=== PATIENT | male | born 1960 | race Caucasian/White ===

== ENCOUNTER 2024-05-19 18:30 | Inpatient (IN) | payer MEDICARE, SELFPAY ==
[2024-05-19 12:37] VITALS: BP 163/104
[2024-05-19 14:00] VITALS: BP 169/84
--- NOTE | 2024-05-19 14:23 | ED.GENMED ---
History of Present Illness
General
Chief Complaint: Bowel Problem
Source: patient
Exam Limitations: none
Time Seen by Provider: 05/19/24 14:14
Nursing documentation reviewed up to this point in time: agreed with
History of Present Illness
History of Present Illness:
64-year-old male presents emergency room complaining of diffuse abdominal pain, and being unable to move his bowels for the past 4 to 5 days.
Past History
Past History
ED Past Medical History: Asthma, GERD, HTN and Other (Chronic back pain)
Social History
Tobacco: Non-smoker
Alcohol: None
Personal:
Living: alone
Employment: Disabled
Family History
Family History: Other (Noncontributory)
Review of Systems
Review of Systems
Allergies reviewed?: Yes
All Other Systems: Not applicable
Constitutional: Reports no symptoms
EENT: Reports no symptoms
Respiratory: Reports no symptoms
Cardiac: Reports no symptoms
ABD/GI: Reports abdominal pain, nausea and constipated
: Reports no symptoms
Musculoskeletal: Reports no symptoms
Skin: Reports no symptoms
Neurological: Reports no symptoms
Endocrine: Reports no symptoms
Hematologic/Lymphatic: Reports no symptoms
Psychiatric: Reports no symptoms
Phy Exam
Physical Exam
Physical Exam:
Physical Exam
General: afebrile
Neck: supple. no meningeal signs. normal posterior pharynx
Heart: s1/s2 regular rate and rhythm, no murmur. equal radial
pulses.
HEENT: Pupils equal round reactive to light, EOMI
Lungs: no acute respiratory distress. clear bilaterally
Abdomen: normal bowel sounds. diffuse tenderness
Neuro: alert and oriented. no focal neurological deficits
Skin: no rash
Psychiatric: well kept. interactive and cooperative
Extremities: no edema. no calf tenderness. negative homans. good distal pulses
Course
Orders/Labs/Results
Orders:
Orders
05/19/24 Lunch
NPO
Allow oral meds: No
Allow clear liquids: No
05/19/24 14:21
IV Insert/Care/Rem.- Treatment PRN
0.9% Sodium Chloride 1000 ml [Nss] 1,000 ml IV BOLUS
05/19/24 14:22
CT Abd/Pel (IV only)-DH only Urgent
Comment:
Reason For Exam: diffuse abd pain, constipation 4 days
05/19/24 14:40
Complete Blood Count/With Diff Urgent
Comprehensive Metabolic Panel Urgent
Lipase Urgent
05/19/24 17:04
Morphine Sulfate 4 mg IV NOW STA
Ondansetron Injectable [Zofran] 4 mg IV NOW STA
05/19/24 17:13
CT Abd/pel Rectal Only-ED Only Urgent
Comment:
Reason For Exam: concern for obstruction, stricture
05/19/24 18:03
Admit/Transfer Patient As Directed
Co-Sign Provider:
Level of Care: Inpatient admission
Assign to:: Medical/Surgical
Physician / Group: Tonie Cooper
Diagnosis: large bowel obstruction
Reason for Hospitalization: large bowel obstruction
Expected length of stay greater than two midnights?: Yes
ELOS- Estimated Length of Stay in days: 3
I certify the patient meets the requirements for IP care: Yes
05/19/24 18:04
Code Status As Directed
Resuscitation Status: Full Code
05/19/24 18:17
HYDROmorphone [Dilaudid] 0.5 mg IV NOW STA
05/19/24 18:20
Piperacillin/Tazo 3.375 Gram [Zosyn] 3.375 gram in 50 ml IV Q6H
05/19/24 18:21
Transfer Patient As Directed
Transfer to: Telemetry
Reason for Telemetry: Chest Pain syndromes
Date to Stop Telemetry: 05/21/24
Time to Stop Telemetry: 11:00
05/19/24 19:00
Lactated Ringers [Lr] 1,000 ml IV 100 mls/hr
05/19/24 19:26
Acetaminophen [Tylenol] 650 mg PO Q4HPRN PRN
HYDROmorphone [Dilaudid] 1 mg IV Q3HPRN PRN
Ondansetron Injectable [Zofran] 4 mg IV Q6HPRN PRN
05/19/24 19:26
Activity As Directed
Activity Level: As Tolerated
Pneumatic Compression Sleeves As Directed
Type: Knee high
Vital Signs As Directed
Frequency: Per unit guidelines
Weight As Directed
Frequency: Daily
DX Deep Vein Thrombosis Video Routine
05/19/24 20:00
Bupropion(12Hr)Sustain Release [WELLBUTRIN SR (12 hour sustained release)] 150 mg PO BID
05/19/24 22:00
Cyclobenzaprine HCl [Flexeril] 10 mg PO TID
05/20/24 06:00
Basic Metabolic Panel IN AM
Complete Blood Count/With Diff IN AM
Magnesium IN AM
05/20/24 08:00
Pantoprazole [Protonix IV] 40 mg IV DAILY
05/21/24 11:00
DC Protocol for Telemetry ONCE
Abnormal Lab Results
05/19/24
14:40
WBC 18.1 H 10^3/uL
(4.8-10.8)
MPV 11.1 H fL
(7.4-10.4)
Abs Immat Gran (auto) 0.1 H 10^3/uL
(0-0.05)
Absolute Neuts (auto) 14.7 H 10^3/uL
(1.4-6.5)
Absolute Monos (auto) 2.0 H 10^3/uL
(0.1-0.6)
Neutrophils % 81.5 H %
(42.2-75.2)
Lymphocytes % 6.7 L %
(20.5-51.1)
Monocytes % 11.0 H %
(1.7-9.3)
BUN 25 H mg/dl
(9-20)
Creatinine 1.5 H mg/dL
(0.7-1.3)
Glucose 114 H mg/dl
(70-99)
05/19/24 14:40
05/19/24 14:40
Vital Signs
Initial and Last Documented VS:
Initial Vital Signs
Temp Pulse Resp BP Pulse Ox
98.0 F 86 16 163/104 98
05/19/24 12:37 05/19/24 12:37 05/19/24 12:37 05/19/24 12:37 05/19/24 12:37
Last Documented Vital Signs
Temp Pulse Resp BP Pulse Ox
98.0 F 87 20 148/107 95
05/19/24 12:37 05/19/24 18:45 05/19/24 16:00 05/19/24 18:26 05/19/24 18:30
MDM/Problems Addressed
Differential Diagnosis Includes:
Bowel obstruction, diverticulitis
MDM/Problems Addressed:
64-year-old male with large bowel obstruction. Patient seen by Dr. Buckner in ED. Plan for colonic stent.
Chronic conditions affecting care: Asthma
Acute Exacerbation and/or Progression of Chronic Illness: Asthma
*Radiology
Radiology exam reviewed: radiology read reviewed (CT abdomen pelvis shows findings concerning for colonic mass and distal sigmoid colon with obstruction)
*Pulse Oximetry
Patient hypoxic: no
*EKG
Interpreted by ED Provider?: NA
*Gang Ripsaw Operator Interpretation
Rate: Gang Ripsaw Operator- N/A
*Critical Care Note
Total Time (30-74mins, 75-104mins- exclusive of procedures): Not Applicable
Patient Management
Social determinants of health affecting care: Living situation
Discussion with other providers: Hospitalist and Steel Pourer Helper (Colorectal surgery Dr. Buckner)
Escalation/DeEscalation of care consider admission/obs:
Admit indicated
ED Attending Note
-
Portions of this chart may have been created with voice recognition software.� Occasional wrong word or��sound alike� substitutions may have occurred due to the inherent limitations of voice recognition software.
Discharge Plan
Departure
Patient Disposition: Admit
Date of Disposition: 05/19/24
Time of Disposition: 17:14
Admit to: Med/Surg
Presentation/result/management discussed w/ accepting MD/DO: Hospitalist
Patient with high blood pressure during this ER visit?: Yes
Condition: Fair
Discharge Problem:
Large bowel obstruction, Renal insufficiency
Interventions
Interventions:
*Risk Screen - Suicide Last Done: 05/19/24 14:00
*General Assessment Last Done: 05/19/24 14:00
*Neglect/Abuse Screening Last Done: 05/19/24 14:00
ED- Fall Risk Assessment Last Done: 05/19/24 19:21
*Nursing Disposition Last Done: 05/19/24 19:21
CW-Mybwcd-Oaeksaclgp Assessment Last Done: 05/19/24 14:00
Discharge Date and Time
Discharge Date/Time: 05/19/24 19:22
[2024-05-19] MEDS: NSS 1000 IV (14:49)
[2024-05-19 15:12] LABS: ALT (SGPT) 21 U/L (0-50); AST (SGOT) 34 U/L (17-59); Albumin 4.6 g/dl (3.5-5.0); Blood Urea Nitrogen 25 mg/dl (9-20); Calcium 9.6 mg/dl (8.4-10.2); Carbon Dioxide 27 mmol/L (22-30); Chloride 100 mmol/L (98-107); Glucose 114 mg/dl (70-99); Lipase 35 U/L (23-300); Potassium 3.6 mmol/L (3.5-5.1); Sodium 137 mmol/L (135-145); Total Bilirubin 1.1 mg/dl (0.2-1.3); eGFR 51.99
[2024-05-19 15:14] LABS: % Basophils 0.2 % (0-2); % Eosinophils 0.3 % (0-6); % Immature Granulocytes 0.3 % (0-0.5); % Lymphocytes 6.7 % (20.5-51.1); % Neutrophils 81.5 % (42.2-75.2); Absolute Eosinophils 0.1 10^3/uL (0-0.7); Absolute Immature Granulocytes 0.1 10^3/uL (0-0.05); Absolute Lymphocytes 1.2 10^3/uL (1.2-3.4); Absolute Neutrophils 14.7 10^3/uL (1.4-6.5); Hematocrit 44.9 % (39.0-52.0); Hemoglobin 15.8 g/dL (13.0-18.0); Mean Corp Hgb Conc. 35.2 g/dL (33.0-37.0); Mean Corpuscular Hgb 28.8 pg (27.0-31.0); Mean Corpuscular Volume 81.9 fL (80.0-94.0); Mean Platelet Volume 11.1 fL (7.4-10.4); Nucleated Red Blood Cells % 0 % (-); Platelet Count 224 10^3/uL (130-400); Red Blood Cell Count 5.48 10^6/uL (4.70-6.10); Red Cell Dist. Width 12.4 % (11.5-14.5); White Blood Cell Count 18.1 10^3/uL (4.8-10.8)
[2024-05-19 15:42] LABS: Alkaline Phosphatase 89 U/L (38-126)
[2024-05-19 16:00] VITALS: BP 145/89
[2024-05-19] MEDS: MORPHINE SULFATE 4 MG IV (17:14)
[2024-05-19] MEDS: ZOFRAN 4 MG IV (17:14)
--- NOTE | 2024-05-19 17:29 | HPS.HSE ---
Family Physician
-
Family Physician: Mame Brennan
Chief Complaint
-
abdominal pain
History of Present Illness
Mr. Minh De La Fuente is a 64 yo man with hx asthma, GERD, chronic back pain presents to the ER with abdominal pain.
Patient states he developed constipation 4 days ago. He has not been passing gas. 2-3 days ago developed worsening abdominal pain. It became more severe bringing him to the ER. No fevers/chills. + nausea. No vomiting.
No chest pain or shortness of breath. No LE swelling.
Patient has chronic low back pain, opiate dependence. He lives alone. He can walk small distances with a cane or walker otherwise needs a wheelchair.
Medical History
Past Medical History
Past Medical History: Reports Asthma, GERD, HTN, Hypercholesterolemia, Psychiatric (depression) and Other
Additional Past Medical History:
chronic lower back pain
Past Surgical History: Reports Orthopedic
Social History
Tobacco: Non-smoker
Alcohol: None
Family History
Family History: Not pertinent
Allergies / Home Medications
Allergies reflects when Allergies were last updated in [facility].
Home Medications with original date entered in [facility]
Allergy/Medication List:
Allergies
Allergy/AdvReac Type Severity Reaction Status Date / Time
No Known Allergies Allergy Verified 05/19/24 12:39
Home Medications
losartan 100 mg-hydrochlorothiazide 12.5 mg tablet 12.5 tab PO DAILY 07/09/19
oxycodone-acetaminophen 10 mg-325 mg tablet (Percocet) 10 tab PO Q4 PRN pain 07/09/19
bupropion HCl 150 mg tablet,12 hr sustained-release 150 mg PO BID 02/21/23
cyclobenzaprine 10 mg tablet 10 mg PO BID 02/21/23
fenofibrate 160 mg tablet 160 mg PO DAILY 02/21/23
fluticasone propionate 50 mcg/actuation nasal spray,suspension 1 spray intranasal DAILY 02/21/23
ketoconazole 2 % topical cream 1 applic topical DAILY 02/21/23
losartan 100 mg tablet 100 mg PO DAILY 02/21/23
omeprazole 20 mg capsule,delayed release 20 mg PO DAILY 02/21/23
rosuvastatin 10 mg tablet 10 mg PO DAILY 02/21/23
testosterone cypionate 200 mg/mL intramuscular kit 200 mg IM Q3W 02/21/23
Review of Systems
-
History Source: Patient
A 12 point ROS was completed and negative except as noted: Yes
Physical Exam
Vital Signs
Vital Signs
Temp Pulse Resp BP Pulse Ox
98.0 F 86 16 163/104 98
05/19/24 12:37 05/19/24 12:37 05/19/24 12:37 05/19/24 12:37 05/19/24 12:37
Physical Exam
General: Obese
HEENT: PERRLA
Respiratory: Clear; No Wheezes
Cardiac: S1/S2 and Regular Rhythm
GI: Other (obese, tenderness lower quadrants )
Musculoskeletal: No Edema
Skin: Warm and Dry; No Rash
Neuro: AO x 3
Psych: Anxious
Laboratory Results
-
05/19/24 14:40
05/19/24 14:40
Laboratory Results
Total Bilirubin 1.1 mg/dl (0.2-1.3) 05/19/24 14:40
AST 34 U/L (17-59) 05/19/24 14:40
ALT 21 U/L (0-50) 05/19/24 14:40
Alkaline Phosphatase 89 U/L (38-126) 05/19/24 14:40
Lipase 35 U/L (23-300) 05/19/24 14:40
Data Reviewed
-
Diagnostic Radiology: Report Reviewed by me
Lab Data: Labs Reviewed by me
Impression/Plan
-
Mr. Minh De La Fuente is a 64 yo man with hx asthma, GERD, chronic back pain presents to the ER with abdominal pain.
Triage VS: T 98, P 86, RR 16, BP 163/104, SpO2 98%
LABS: WBC 18.1, Hg 15.8, PLT 224, Na 137, K+ 3.6, BUN 25, Cr 1.5, Glucose 114, liver enzymes WNL
CT A/P 05/19/24
IMPRESSION: Moderate circumferential wall thickening of the rectum. This may be due to a mural mass or less focal colitis.
Luminal narrowing of the rectosigmoid junction. This may be due to peristalsis. A stricture cannot be excluded. This would better be evaluated by a repeat exam with oral or rectal contrast, barium enema or colonoscopy.
Simple bilateral renal cysts.
Bilateral too small to characterize hypodense renal lesions likely benign cysts.
Small hiatal hernia.
Moderate fecal material mostly in the left colon.
Mild diverticulosis.
MAR: IV Morphine, IVF, IV Zofran
Large Bowel Obstruction - concern for mural mass of rectum/ stricture rectosigmoid junction
-admit to tele
-Dr. Buckner saw patient in ER, possible OR this evening
-keep NPO including medications
-with Leukocytosis will start IV antibiotics, discussed with Dr. Buckner
-IVF
-pain control
-IV Zofran PRN
Asthma
GERD
-IV Protonix
Essential HTN
-hold CANE BURNER HCTZ and Losartan for now
Hyperlipidemia
-hold CANE BURNER Fenofibrate and Rosuvastatin while NPO
Chronic Back Pain
-he is on Cyclobenzaprine, Oxycodone PO q 4H PRN at home
-hold while NPO and giving PRN IV Dilaudid
Depression
-resume Wellbutrin when able to take PO
DVT PPx SCD
FULL CODE
76 minutes spent on patient evaluation, medical decision making, coordination of care
[2024-05-19 18:26] VITALS: BP 148/107
[2024-05-19] MEDS: LR 1000 IV (18:35)
[2024-05-19] MEDS: DILAUDID 0.5 MG IV ×2 (18:35→22:09)
--- NOTE | 2024-05-19 18:39 | CON.CRS ---
Consultation
-
Reason for Consultation: concern for colon mass/obstruction
Medical History
-
Chief Complaint: constipation
History of Present Illness:
Patient is a 64-year-old male with chronic pain issues requiring OxyContin who came into the ER with 4 days of no flatus or BMs and 3 days of abdominal pain. Also admits to nausea for the last day or 2. He is afebrile with reasonable vitals. He
has leukocytosis with a white count o 18.1. Electrolytes are okay with exception of BUN and creatinine elevation of 25 and 1.5 respectively. LFTs are normal. He underwent 2 CT scans of the abdomen and pelvis the first without rectal contrast the
second with rectal contrast. CTs consistent with at least partial if not complete LBO due to mass of distal sigmoid colon. Of note this patient has not had a colonoscopy for 20 years. 20 years ago, he relates that he had a colonoscopy by
[facility] confirming polyps. The patient is understandably anxious about his circumstance. I was consulted for a colorectal surgical opinion.
Past Medical History
Past Medical History: HTN, Hypercholesterolemia and Other (GERD; colon polyps; chronic pain syndrome; lower back issues; depression)
Past Surgical History: Other (no abdominal surgery)
Social History
Tobacco: Non-Smoker
Alcohol: Occasional
Family History
Family History: Other (negative for CR cancer)
Allergies / Home Medications
Allergy/AdvReac Type Severity Reaction Status Date / Time
No Known Allergies Allergy Verified 05/19/24 12:39
�Medication �Instructions �Recorded �Confirmed �Type
bupropion HCl 150 mg tablet,12 hr 150 mg PO BID 02/21/23 05/19/24 History
sustained-release
cyclobenzaprine 10 mg tablet 10 mg PO TID 02/21/23 05/19/24 History
fenofibrate 160 mg tablet 160 mg PO DAILY 02/21/23 05/19/24 History
fluticasone propionate 50 1 spray intranasal DAILY 02/21/23 05/19/24 History
mcg/actuation nasal
spray,suspension
ketoconazole 2 % topical cream 1 applic topical DAILY to face & 02/21/23 05/19/24 History
belly button
losartan 100 mg tablet 100 mg PO DAILY 02/21/23 05/19/24 History
omeprazole 20 mg capsule,delayed 20 mg PO DAILY 02/21/23 05/19/24 History
release
rosuvastatin 10 mg tablet 10 mg PO DAILY 02/21/23 05/19/24 History
testosterone cypionate 200 mg/mL 200 mg IM Q3W 02/21/23 05/19/24 History
intramuscular kit
cholecalciferol (vitamin D3) 25 25 mcg PO DAILY 05/19/24 05/19/24 History
mcg (1,000 unit) tablet
hydrochlorothiazide 12.5 mg capsule 12.5 mg PO DAILY 05/19/24 05/19/24 History
multivit,Ca,min-iron 8 mg-folic 1 tab PO DAILY 05/19/24 05/19/24 History
acid 200 mcg-lycopene 600 mcg
tablet (Centrum Men)
oxycodone 10 mg tablet 10 mg PO Q4HPRN PRN moderate pain 05/19/24 05/19/24 History
Review of Systems
-
A 10 point review of systems was completed, and was negative except as per HPI.
Physical Exam
Vital Signs
Temp 98.0 F 05/19/24 12:37
Pulse 84 05/19/24 16:00
Resp Rate 20 05/19/24 16:00
Blood pressure 145/89 05/19/24 16:00
SaO2 97 05/19/24 16:00
05/18/24 05/19/24 05/20/24
06:59 06:59 06:59
Actual Weight 135.6 kg
Lab Results / Allergies
05/19/24 14:40
05/19/24 14:40
WBC 18.1 10^3/uL (4.8-10.8) H 05/19/24 14:40
Hgb 15.8 g/dL (13.0-18.0) 05/19/24 14:40
Hct 44.9 % (39.0-52.0) 05/19/24 14:40
Plt Count 224 10^3/uL (130-400) 05/19/24 14:40
Abs Immat Gran (auto) 0.1 10^3/uL (0-0.05) H 05/19/24 14:40
Neutrophils % 81.5 % (42.2-75.2) H 05/19/24 14:40
Allergy/AdvReac Type Severity Reaction Status Date / Time
No Known Allergies Allergy Verified 05/19/24 12:39
Physical Exam
General: Well Developed
HEENT: Normocephalic
Respiratory: Clear
Cardiac: Regular Rhythm
GI: Tender (generalized but no peritineal signs), Distended (mildly), Obese and Other (erythema at umbilicus)
Skin: Warm and Dry
Neuro: Awake, Alert, Oriented and No Motor Deficits
Psych: Other (anxious)
Data Reviewed
-
CT Scan: Image Personally Visualized and interpreted, Report Reviewed by me, Discussed with Physician and Discussed with Patient
Labs: Labs Reviewed by me
Assessment / Plan
-
64-year-old male with at least partial if not complete large bowel obstruction due to distal sigmoid narrowing, with concern for neoplasm. No evidence for perforation. He is not an extremis. The etiology of the leukocytosis is unclear. I
communicated with the patient regarding options including a trip to the OR for flexible sigmoidoscopy under anesthesia followed by possible Hernandez's resection versus GI evaluation regarding option of colonic stent placement. I discussed the
situation also with my partner Dr. Lott. All involved agree that GI evaluation with for potential stenting would be golden as it may avoid potential for colostomy and potentially avoid a staged surgical approach, if surgery is necessary. The
patient was informed of this and is in agreement with the plan. Doing close discussion with the patient and planning took a total of about an hour and 15 minutes.
Thanks.
[2024-05-19 20:05] VITALS: BMI 43.6
[2024-05-19 23:00] VITALS: BP 137/90
[2024-05-19] MEDS: FLEXERIL 10 MG PO (23:20)
[2024-05-19] MEDS: WELLBUTRIN SR (12 hour sustained release) PO (23:54)
[2024-05-20] VITALS (8 sets, daily range): BP systolic 103–159; BP diastolic 65–86; BMI 44.2
[2024-05-20] MEDS: ZOSYN 50 IV ×5 (00:02→23:22)
[2024-05-20] MEDS: DILAUDID 1 MG IV ×2 (00:06→05:19)
[2024-05-20 07:03] LABS: % Basophils 0.1 % (0-2); % Eosinophils 0.3 % (0-6); % Immature Granulocytes 0.5 % (0-0.5); % Lymphocytes 8.1 % (20.5-51.1); % Monocytes 10.7 % (1.7-9.3); % Neutrophils 80.3 % (42.2-75.2); Absolute Immature Granulocytes 0.1 10^3/uL (0-0.05); Absolute Lymphocytes 1.1 10^3/uL (1.2-3.4); Absolute Monocytes 1.5 10^3/uL (0.1-0.6); Hematocrit 36.8 % (39.0-52.0); Hemoglobin 13.1 g/dL (13.0-18.0); Mean Corp Hgb Conc. 35.6 g/dL (33.0-37.0); Mean Corpuscular Hgb 30.2 pg (27.0-31.0); Mean Corpuscular Volume 84.8 fL (80.0-94.0); Mean Platelet Volume 11.4 fL (7.4-10.4); Nucleated Red Blood Cells % 0 % (-); Platelet Count 159 10^3/uL (130-400); Red Blood Cell Count 4.34 10^6/uL (4.70-6.10); Red Cell Dist. Width 12.3 % (11.5-14.5); White Blood Cell Count 13.7 10^3/uL (4.8-10.8)
[2024-05-20] MEDS: PROTONIX IV 40 MG IV (08:09)
[2024-05-20] MEDS: NSS (PRESERVATIVE FREE) 10 ML IV (08:09)
[2024-05-20] MEDS: FLEXERIL 10 MG PO ×3 (08:09→21:37)
[2024-05-20] MEDS: WELLBUTRIN SR (12 hour sustained release) 150 MG PO ×2 (08:10→21:37)
[2024-05-20] MEDS: MORPHINE SULFATE 4 MG IV ×4 (08:10→22:19)
[2024-05-20 08:12] LABS: Blood Urea Nitrogen 20 mg/dl (9-20); Calcium 8.2 mg/dl (8.4-10.2); Carbon Dioxide 26 mmol/L (22-30); Chloride 100 mmol/L (98-107); Estimated Creatinine Clearance 92 ml/min; Glucose 98 mg/dl (70-99); Potassium 3.4 mmol/L (3.5-5.1); Sodium 133 mmol/L (135-145); eGFR > 60.00
[2024-05-20] MEDS: LR 1000 IV (10:32)
--- NOTE | 2024-05-20 11:30 | PTCARENOTE ---
Assumed care of patient at AM change of shift, AAOx3, reporting 10/10 pain in abdomen. LR running at 100ml/hr. Pt reports morphine seemed to have worked better for him than dilaudid, order for PRN morphine obtained - see MAR. Plan of care ongoing.
--- NOTE | 2024-05-20 12:08 | W.PN.HOSP.TC ---
Addendum entered and electronically signed by Tonie Cooper MD 05/20/24 13:18:
*Sterocoral Colitis
Leukocytosis
-continue IV Zosyn for now
Original Note:
Today's Communication/Plan
-
see plan
Assessment / Plan
Assessment / Plan
Mr. Minh De La Fuente is a 64 yo man with hx asthma, GERD, chronic back pain presents to the ER with abdominal pain.
CT A/P 05/19/24
IMPRESSION: Moderate circumferential wall thickening of the rectum. This may be due to a mural mass or less focal colitis.
Luminal narrowing of the rectosigmoid junction. This may be due to peristalsis. A stricture cannot be excluded. This would better be evaluated by a repeat exam with oral or rectal contrast, barium enema or colonoscopy.
Simple bilateral renal cysts.
Bilateral too small to characterize hypodense renal lesions likely benign cysts.
Small hiatal hernia.
Moderate fecal material mostly in the left colon.
Mild diverticulosis.
Colonoscopy 05/19/24
Impression: - Preparation of the colon was unsatisfactory.
- Hemorrhoids found on perianal exam.
- Stool in the entire examined colon.
- A large fecolith impacted in the sigmoid colon,
disrupted and disimpacted.
- No specimens collected.
Recommendation: - Return patient to [facility] for ongoing care.
- Clear liquid diet today.
- Aggressive osmotic laxative regimen; Miralax 1
capful (17 grams) in 8 ounces of water PO QID.
- Repeat colonoscopy for re-evaluation, timing to be
determined.
Large Bowel Obstruction - concern for mural mass of rectum/ stricture rectosigmoid junction
-concern for mass; s/p colonoscopy with finding of large fecolith now disimpacted
-aggressive bowel regimen per GI
-now on clears - continue given continued pain
-start simethicone
-F/U further GI recs
GERD
-IV Protonix
Essential HTN
-resume Losartan
-hold HCTZ
Hyperlipidemia
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
Chronic Back Pain
-he is on Cyclobenzaprine, Oxycodone PO q 4H PRN at home
Depression
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
DVT PPx SCD
FULL CODE
51 minutes spent on patient evaluation, medical decision making, coordination of care
Anticipated Discharge: 24 - 48 hours
Subjective/Interval History
-
Date of Service: May 20, 2024
continues to complain of abdominal pain
no bowel movement today, has not yet received Miralax
Objective Data
-
Labs:
Laboratory Results
05/20/24
06:36
WBC 13.7 H
Hgb 13.1
Hct 36.8 L
Plt Count 159 D
Sodium 133 L
Potassium 3.4 L
Chloride 100
Carbon Dioxide 26
BUN 20
Creatinine 1.2
Glucose 98
Calcium 8.2 L
Vital Signs:
Vital Signs
Temp Pulse Resp BP Pulse Ox
99.5 F 85 20 159/80 96
05/20/24 11:00 05/20/24 11:00 05/20/24 11:00 05/20/24 11:00 05/20/24 11:00
I&O
05/19/24 05/20/24 05/21/24
06:59 06:59 06:59
Intake Total 240 / 240
Output Total 275 / 275
Balance -35 / -35
Review of Systems
-
History Source: Patient
All other systems: Reviewed and negative
Physical Exam
-
General: No Apparent Distress
HEENT: PERRLA
Respiratory: Clear to Auscultation; Negative Wheezes
Cardiac: Regular Rhythm and S1/S2
GI: Soft and Nontender
Genito-urinary: No Costovertebral Tender
Musculoskeletal: No Edema
Skin: Warm and Dry; Negative Rash
Neuro: AO x 3
Psych: Calm
Data Reviewed
-
Diagnostic Radiology: Report Reviewed by me
Labs: Labs Reviewed by me
[2024-05-20] MEDS: COZAAR 100 MG PO (12:34)
[2024-05-20] MEDS: MYLICON 80 MG PO ×3 (12:34→21:37)
[2024-05-20] MEDS: TRICOR 145 MG PO (12:34)
[2024-05-20] MEDS: MIRALAX 17 GRAMS PO ×3 (12:35→21:37)
--- NOTE | 2024-05-20 13:33 | CON.GI ---
Addendum entered and electronically signed by Justen Guerra MD 05/20/24 18:54:
I saw and examined the patient.
The WAGON WASHER or PA's note was reviewed and I agree with the note.
Comment:
Pt with a hx of obesity, asthma, found to have a possible mass in lower colon by ct. Flex sig showed it as a stool impaction. Pt with vague ruq d/c, constipation, last colonoscopy 20 yrs ago
abd: tender to touch in right side
impression:
abd pain
constipation
plan:
miralax
enema if no improvement (pt requested this if no improvement as well)
ruq u/s although pain superficial
xray of abdomen
will need eventual elective colonoscopy but will need to be cleared out first
Addendum entered and electronically signed by AIDA Medrano 05/20/24 16:33:
with continued RUQ pain with some guarding and worse with deep breath will proceed with US and obstruction series. Remains stable without fever, chills, tachycardia
Original Note:
Consultation
-
Date/Time Consultation Requested: 05/20/24 1200
Date/Time Consultation Performed: 05/20/24 1330
Requesting Provider: Tonie Cooper MD
Performing Provider: AIDA Jolley, Justen Guerra MD
Reason for Consultation: colitis
Medical History
Chief Complaint / HPI
Chief Complaint: abdominal pain, constipation
History of Present Illness:
Pt is a 64yo with hx colon polyps, Ecoli shiga infection, IBS, GERD, HTN, Asthma, HTN, hypercholesterolemia, depression, chronic pain on chronic narcotics with presents to ER for diffuse abdominal pain with no stools for several days. He admits to
straining with only passing small amount of stools. On admission Ct completed with IV only with concern for luminal narrowing with concern for stricture with moderate wall thickening of rectum mass vs colitis. Repeat imaging with rectal contrast
again concern for colon mass partial vs complete obstruction distal sigmoid and moderate stool in colon. He proceeded to colonoscopy with Dr. Ludwig 05/19 for eval for need for colonic stent and noted poor prep with hemorrhoids and stool in entire colon
with large fecolith in sigmoid that was disimpacted. Asked to see for ongoing mangement of constipation and eval for eventual colonoscopy.
Pt states his usual stool pattern with IBS noted with loose stool in AM but will be on toilet about 1 hour as will pass multiple stools after larger stool. He typically will take colace and small stimulant laxative pill. Last colonoscopy 20
years ago with polyps. Pt also admits to more severe new pain RUQ 10/10 noted on admission then worse after colonoscopy. Repeat abd film last PM without free air. He has also had nausea without vomiting an admits to some rectal bleeding. Pt
denies dysphagia, odynophagia, GERD or black stools. Last full colonoscopy 20 years ago with polyps.
Past Medical History
Past Medical History: Asthma, GERD, HTN, Hypercholesterolemia, Psychiatric (depression) and Other (chronic back/knee and hip pain with chronic narcotic use, ecoli shiga infection, IBS, colon polyp)
Past Surgical History: Orthopedic
Social History
Tobacco: Non-Smoker
Alcohol: None
Drug: Marijuana
Personal:
Living: Alone
Employment: Disabled
Family History
Family History: Other (no family hx colon ca or polyps )
Allergies / Home Medications
Allergy/AdvReac Type Severity Reaction Status Date / Time
No Known Allergies Allergy Verified 05/19/24 12:39
�Medication �Instructions �Recorded
bupropion HCl 150 mg tablet,12 hr 150 mg PO BID Mental Health/Anxiety 02/21/23
sustained-release
cyclobenzaprine 10 mg tablet 10 mg PO TID 02/21/23
fenofibrate 160 mg tablet 160 mg PO DAILY 02/21/23
fluticasone propionate 50 1 spray intranasal DAILY 02/21/23
mcg/actuation nasal Lung/Breathing Issues
spray,suspension
ketoconazole 2 % topical cream 1 applic topical DAILY to face & 02/21/23
belly button
losartan 100 mg tablet 100 mg PO DAILY Blood Pressure 02/21/23
omeprazole 20 mg capsule,delayed 20 mg PO DAILY Gastrointestinal 02/21/23
release Issue
rosuvastatin 10 mg tablet 10 mg PO DAILY High Cholesterol 02/21/23
testosterone cypionate 200 mg/mL 200 mg IM Q3W 02/21/23
intramuscular kit
cholecalciferol (vitamin D3) 25 25 mcg PO DAILY Supplement 05/19/24
mcg (1,000 unit) tablet
hydrochlorothiazide 12.5 mg capsule 12.5 mg PO DAILY Fluid 05/19/24
Retention/Swelling
multivit,Ca,min-iron 8 mg-folic 1 tab PO DAILY Supplement 05/19/24
acid 200 mcg-lycopene 600 mcg
tablet (Centrum Men)
oxycodone 10 mg tablet 10 mg PO Q4HPRN PRN moderate pain 05/19/24
docusate sodium 100 mg capsule 100 mg PO DAILY Constipation 05/20/24
(Colace)
Review of Systems
-
History Source: Patient
Constitutional: Reports No Symptoms
EENT: Reports No Symptoms
Respiratory: Reports No Symptoms
Cardiac: Reports No Symptoms
Abdomen/GI: Reports Abdominal Pain, Nausea, Constipated and Bloody Stools
: Reports Dark Urine (decreased urination since admission) and Other
Musculoskeletal: Reports Joint Pain (chronic with chronic narcotic use )
Skin: Reports No Symptoms
Neurological: Reports No Symptoms
Endocrine: Reports No Symptoms
Hematologic/Lymphatic: Reports Bleeding (some bleeding intermittently )
Vital Signs
Temp Pulse Resp BP Pulse Ox
99.5 F 85 20 159/80 96
05/20/24 11:00 05/20/24 11:00 05/20/24 11:00 05/20/24 11:00 05/20/24 11:00
Physical Exam
Exam
General: Well Developed, Well Nourished and No Apparent Distress
HEENT: Normocephalic and Anicteric
Respiratory: Clear
Cardiac: Regular Rhythm
GI: Soft, Non Distended and Tender (RUQ with some guarding )
Musculoskeletal: No Clubbing and No Cyanosis
Skin: Warm and Dry
Neuro: Awake, Alert and AO x 3
Psych: Calm
Results
WBC 13.7 10^3/uL (4.8-10.8) H 05/20/24 06:36
Hgb 13.1 g/dL (13.0-18.0) 05/20/24 06:36
Hct 36.8 % (39.0-52.0) L 05/20/24 06:36
MCV 84.8 fL (80.0-94.0) 05/20/24 06:36
Plt Count 159 10^3/uL (130-400) D 05/20/24 06:36
Absolute Neuts (auto) 11.0 10^3/uL (1.4-6.5) H 05/20/24 06:36
Sodium 133 mmol/L (135-145) L 05/20/24 06:36
Potassium 3.4 mmol/L (3.5-5.1) L 05/20/24 06:36
Chloride 100 mmol/L (98-107) 05/20/24 06:36
Carbon Dioxide 26 mmol/L (22-30) 05/20/24 06:36
BUN 20 mg/dl (9-20) 05/20/24 06:36
Creatinine 1.2 mg/dL (0.7-1.3) 05/20/24 06:36
Calcium 8.2 mg/dl (8.4-10.2) L 05/20/24 06:36
Total Bilirubin 1.1 mg/dl (0.2-1.3) 05/19/24 14:40
AST 34 U/L (17-59) 05/19/24 14:40
ALT 21 U/L (0-50) 05/19/24 14:40
Alkaline Phosphatase 89 U/L (38-126) 05/19/24 14:40
Lipase 35 U/L (23-300) 05/19/24 14:40
Diagnostic Image Results:
05/19/24 abd film 1030 PM
Mild small bowel dilatation probably ileus. No free air noted.
05/19/24 CT Abd/Pel (IV only)-[facility] only
IMPRESSION: Moderate circumferential wall thickening of the rectum. This may be due to a mural mass or less focal colitis.
Luminal narrowing of the rectosigmoid junction. This may be due to peristalsis. A stricture cannot be excluded. This would better be evaluated by a repeat exam with oral or rectal contrast, barium enema or colonoscopy.
Simple bilateral renal cysts.
Bilateral too small to characterize hypodense renal lesions likely benign cysts.
Small hiatal hernia.
Moderate fecal material mostly in the left colon.
Mild diverticulosis.
05/19/[address] Abd/pel Rectal Only-[facility] Only
IMPRESSION: Findings concerning for colonic mass in the distal sigmoid colon with if not complete obstruction, partial obstruction. See above. This case was reviewed with Dr. Buckner
Left adrenal mass consistent with benign adrenal adenoma. Stable.
Simple left renal cyst. Stable
Diverticulosis. Stable
Moderate fecal material in the colon. Stable
Small hiatal hernia. Stable
Prior GI Procedures:
EGD: none
05/19/[address] Ludwig- Preparation of the colon was unsatisfactory.
- Hemorrhoids found on perianal exam.
- Stool in the entire examined colon.
- A large fecolith impacted in the sigmoid colon,
disrupted and disimpacted.
- No specimens collected.
Assessment / Plan
-
Pt is a 64yo with hx colon polyps, Ecoli shiga infection, IBS, GERD, HTN, Asthma, HTN, hypercholesterolemia, depression, chronic pain on chronic narcotics with presents to ER for diffuse abdominal pain with no stools for several days. He admits to
straining with only passing small amount of stools. On admission Ct completed with IV only with concern for luminal narrowing with concern for stricture with moderate wall thickening of rectum mass vs colitis. Repeat imaging with rectal contrast
again concern for colon mass partial vs complete obstruction distal sigmoid and moderate stool in colon. He proceeded to colonoscopy with Dr. Ludwig 05/19 for eval for need for colonic stent and noted poor prep with hemorrhoids and stool in entire colon
with large fecolith in sigmoid that was disimpacted. Asked to see for ongoing management of constipation and eval for eventual colonoscopy.
-fecal impaction with large fecolith on flex 05/19
-RUQ pain
-leukocytosis
-chronic joint pain with chronic narcotic use
other med problems:
-colon polyps
-Ecoli shiga infection in past
-IBS
-GERD
-HTN
-asthma
-hypercholesterolemia
-depression
PLAN:
Etiology of symptoms with concern for narcotic induced constipation with fecal impaction/stercoral colitis on admission vs other
Etiology of RUQ pain related to muscular origin as report severe straining prior to admission vs biliary vs other
cont Miralax QID for bowel clean out then will need standing regiment-- can start with Miralax BID and senna but may benefit from narcotic induced medication such as relistor, movantik etc.
repeat abd film last PM no free air
will add on repeat LFT's and lipase with RUQ pain
Pt will need eventual full colonoscopy -- will review timing with Dr. Guerra-- ideally outpatient when improved from likely colitis from impaction and improved RUQ but logistically difficulty for patient to get to hospital to complete
cont IV abx
current on clear diet
limit narcotics as able
will follow
-
-
Thank you for consultation and allowing me to participate in the patient's care. Please call the hotel front desk clerk GI physician during the after hours with any questions or concerns.
--- NOTE | 2024-05-20 14:18 | W.PN.CRS1 ---
Today's Communication / Plan
-
Clears and continue antibiotics.
Assessment/Plan
-
Patient with constipation/stercoral colitis.
1. Appreciate Dr. Edward's colonoscopy last evening. Interestingly no evidence for mass. Instead severe constipation/feces noted. This seems to be constipation/stercoral colitis issue. This is likely related to his chronic narcotic use. Agree for
now with empiric antibiotics.
2. Still with abdominal discomfort/pain. Difficult to interpret with his narcotic dependence/pain tolerance issues. Will continue to assess.
3. Trial clears. For now no need for surgical intervention.
Subjective Data
Subjective Data
Date of Service: May 20, 2024
Admits to abdominal discomfort. No nausea or vomiting.
Objective Data
-
Vital Signs
Temp Pulse Resp BP Pulse Ox
99.5 F 85 20 159/80 96
05/20/24 11:00 05/20/24 11:00 05/20/24 11:00 05/20/24 11:00 05/20/24 11:00
Intake & Output
05/19/24 05/20/24 05/21/24
06:59 06:59 06:59
Intake Total 240 / 240
Output Total 275 / 275
Balance -35 / -35
Intake:
Oral fluids 240 / 240
Output:
Urine, Voided 275 / 275
Lab Results
05/20/24 06:36
05/20/24 06:36
Physical Exam
-
General: No Acute Distress
Chest: Clear
Cardiovascular: Regular Rate & Rhythm
Abdomen: Distended (mild) and Tender (mild)
--- NOTE | 2024-05-20 14:44 | CM ---
Initial assessment performed by lining caser
Patient lives alone in an apartment with 12 steps to get in apartment.
Independent with cane, walker, and has wheelchair if needed.
Patient denies any VN and SNF history.
Will return to home when stable.
PCP: [facility] Mendez in [place]
Pharmacy: [facility]
Plan: Return to home when stable. No needs at this time.
[2024-05-20] MEDS: ZOFRAN 4 MG IV ×2 (14:48→23:16)
[2024-05-20 17:18] LABS: ALT (SGPT) 17 U/L (0-50); AST (SGOT) 31 U/L (17-59); Albumin 3.4 g/dl (3.5-5.0); Alkaline Phosphatase 70 U/L (38-126); Direct Bilirubin 0.5 mg/dl (0.0-0.4); Lipase 24 U/L (23-300); Total Bilirubin 1.2 mg/dl (0.2-1.3); Total Protein 5.5 g/dl (6.3-8.2)
[2024-05-20] MEDS: CRESTOR 10 MG PO (17:20)
[2024-05-21] MEDS: LR 1000 IV (01:35)
[2024-05-21] MEDS: MORPHINE SULFATE 4 MG IV ×4 (02:34→20:00)
[2024-05-21 03:00] VITALS: BP 113/63
[2024-05-21] MEDS: ZOSYN 50 IV ×3 (05:15→17:27)
[2024-05-21 06:02] LABS: % Basophils 0.2 % (0-2); % Eosinophils 1.5 % (0-6); % Immature Granulocytes 0.3 % (0-0.5); % Lymphocytes 12.7 % (20.5-51.1); % Monocytes 11.7 % (1.7-9.3); % Neutrophils 73.6 % (42.2-75.2); Absolute Eosinophils 0.1 10^3/uL (0-0.7); Absolute Lymphocytes 1.2 10^3/uL (1.2-3.4); Absolute Monocytes 1.1 10^3/uL (0.1-0.6); Hematocrit 36.3 % (39.0-52.0); Hemoglobin 12.8 g/dL (13.0-18.0); Mean Corp Hgb Conc. 35.3 g/dL (33.0-37.0); Mean Platelet Volume 11.2 fL (7.4-10.4); Nucleated Red Blood Cells % 0 % (-); Platelet Count 149 10^3/uL (130-400); Red Blood Cell Count 4.27 10^6/uL (4.70-6.10); Red Cell Dist. Width 12.2 % (11.5-14.5); White Blood Cell Count 9.5 10^3/uL (4.8-10.8)
[2024-05-21 06:13] LABS: Blood Urea Nitrogen 14 mg/dl (9-20); Calcium 8.5 mg/dl (8.4-10.2); Carbon Dioxide 30 mmol/L (22-30); Chloride 102 mmol/L (98-107); Estimated Creatinine Clearance 84 ml/min; Glucose 99 mg/dl (70-99); Potassium 3.9 mmol/L (3.5-5.1); Sodium 137 mmol/L (135-145); eGFR > 60.00
[2024-05-21 07:00] VITALS: BP 161/91
[2024-05-21] MEDS: MIRALAX PO (08:00)
[2024-05-21] MEDS: PROTONIX IV 40 MG IV (08:08)
[2024-05-21] MEDS: WELLBUTRIN SR (12 hour sustained release) 150 MG PO ×2 (08:09→19:54)
[2024-05-21] MEDS: COZAAR 100 MG PO (08:09)
[2024-05-21] MEDS: FLEXERIL 10 MG PO ×3 (08:09→21:38)
[2024-05-21] MEDS: TRICOR 145 MG PO (08:09)
[2024-05-21] MEDS: MYLICON 80 MG PO ×4 (08:09→21:38)
[2024-05-21] MEDS: NSS (PRESERVATIVE FREE) 10 ML IV (08:09)
--- NOTE | 2024-05-21 09:18 | W.PN.GI.CBS2 ---
Today's Communication / Plan
-
miralax
Assessment / Plan
-
Pt is a 64yo with hx colon polyps, Ecoli shiga infection, IBS, GERD, HTN, Asthma, HTN, hypercholesterolemia, depression, chronic pain on chronic narcotics with presents to ER for diffuse abdominal pain with no stools for several days. He admits to
straining with only passing small amount of stools. On admission Ct completed with IV only with concern for luminal narrowing with concern for stricture with moderate wall thickening of rectum mass vs colitis. Repeat imaging with rectal contrast
again concern for colon mass partial vs complete obstruction distal sigmoid and moderate stool in colon. He proceeded to colonoscopy with Dr. Ludwig 05/19 for eval for need for colonic stent and noted poor prep with hemorrhoids and stool in entire colon
with large fecolith in sigmoid that was disimpacted. Asked to see for ongoing management of constipation and eval for eventual colonoscopy.
-fecal impaction with large fecolith on flex 05/19
-RUQ pain
-leukocytosis
-chronic joint pain with chronic narcotic use
other med problems:
-colon polyps
-Ecoli shiga infection in past
-IBS
-GERD
-HTN
-asthma
-hypercholesterolemia
-depression
Plan:
has not gotten miralax. put order in for qid as he is willing to try now.
xray shows improving ileus
ruq u/s although prior ruq d/c likely musculoskeletal
elective colonoscopy
Subjective
Subjective
Date of Service: May 21, 2024
Pt feeling better still with some mild d/c in abdomen. No bm. xray shows improving sb ileus
Objective
Data Reviewed
Laboratory Data:
Laboratory Results
05/21/24 05:30
05/21/24 05:30
Laboratory Results
Magnesium 2.0 mg/dl (1.6-2.3) 05/20/24 06:36
Total Bilirubin 1.2 mg/dl (0.2-1.3) 05/20/24 06:36
AST 31 U/L (17-59) 05/20/24 06:36
ALT 17 U/L (0-50) 05/20/24 06:36
Alkaline Phosphatase 70 U/L (38-126) 05/20/24 06:36
Lipase 24 U/L (23-300) 05/20/24 06:36
Vital Signs and I&O:
Vital Signs
Temp Pulse Resp BP Pulse Ox
99.4 F 70 20 161/91 95
05/21/24 07:00 05/21/24 07:00 05/21/24 07:00 05/21/24 07:00 05/21/24 07:00
I&O
05/20/24 05/21/24 05/22/24
06:59 06:59 06:59
Intake Total 240 / 240 2190 / 2190
Output Total 275 / 275 2700 / 2700
Balance -35 / -35 -510 / -510
Physical Exam
Physical Exam
GI: Soft, Non Distended and Tender (mild tenderness improved)
Neuro: Non Focal
[2024-05-21 11:00] VITALS: BP 181/96
[2024-05-21] MEDS: MIRALAX 17 GRAMS PO ×3 (12:35→21:39)
[2024-05-21] MEDS: ZOFRAN 4 MG IV (12:37)
[2024-05-21] MEDS: LR IV (12:45)
--- NOTE | 2024-05-21 13:15 | W.PN.HOSP.TC ---
Today's Communication/Plan
-
see plan
Assessment / Plan
Assessment / Plan
Mr. Minh De La Fuente is a 64 yo man with hx asthma, GERD, chronic back pain presents to the ER with abdominal pain.
CT A/P 05/19/24
IMPRESSION: Moderate circumferential wall thickening of the rectum. This may be due to a mural mass or less focal colitis.
Luminal narrowing of the rectosigmoid junction. This may be due to peristalsis. A stricture cannot be excluded. This would better be evaluated by a repeat exam with oral or rectal contrast, barium enema or colonoscopy.
Simple bilateral renal cysts.
Bilateral too small to characterize hypodense renal lesions likely benign cysts.
Small hiatal hernia.
Moderate fecal material mostly in the left colon.
Mild diverticulosis.
Colonoscopy 05/19/24
Impression: - Preparation of the colon was unsatisfactory.
- Hemorrhoids found on perianal exam.
- Stool in the entire examined colon.
- A large fecolith impacted in the sigmoid colon,
disrupted and disimpacted.
- No specimens collected.
Recommendation: - Return patient to [facility] for ongoing care.
- Clear liquid diet today.
- Aggressive osmotic laxative regimen; Miralax 1
capful (17 grams) in 8 ounces of water PO QID.
- Repeat colonoscopy for re-evaluation, timing to be
determined.
Large Bowel Obstruction 2/2 large Fecolith
-concern was for mass; s/p colonoscopy with finding of large fecolith now disimpacted
-aggressive bowel regimen per GI, still no BM
-now on clears - continue given continued pain
-start simethicone
-appreciate GI
-F/U US
GERD
-IV Protonix
Essential HTN
-resume Losartan
-hold HCTZ
Hyperlipidemia
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
Chronic Back Pain
-he is on Cyclobenzaprine, Oxycodone PO q 4H PRN at home
-IV Morphine - resume home oxy when diet advanced
Depression
-[employer] Wellbutrin
DVT PPx SCD
FULL CODE
Anticipated Discharge: 24 - 48 hours
Subjective/Interval History
-
Date of Service: May 21, 2024
pain improving
passing gas
still no BM
Objective Data
-
Labs:
Laboratory Results
05/21/24
05:30
WBC 9.5
Hgb 12.8 L
Hct 36.3 L
Plt Count 149
Sodium 137
Potassium 3.9
Chloride 102
Carbon Dioxide 30
BUN 14
Creatinine 1.3
Glucose 99
Calcium 8.5
Vital Signs:
Vital Signs
Temp Pulse Resp BP Pulse Ox
99.6 F 75 20 181/96 96
05/21/24 11:00 05/21/24 11:00 05/21/24 11:00 05/21/24 11:00 05/21/24 11:00
I&O
05/20/24 05/21/24 05/22/24
06:59 06:59 06:59
Intake Total 240 / 240 2190 / 2190
Output Total 275 / 275 2700 / 2700
Balance -35 / -35 -510 / -510
Review of Systems
-
History Source: Patient
All other systems: Reviewed and negative
Physical Exam
-
General: No Apparent Distress
HEENT: PERRLA
Respiratory: Clear to Auscultation; Negative Wheezes
Cardiac: Regular Rhythm and S1/S2
GI: Soft and Nontender
Genito-urinary: No Costovertebral Tender
Musculoskeletal: No Edema
Skin: Warm and Dry; Negative Rash
Neuro: AO x 3
Psych: Calm
Data Reviewed
-
Diagnostic Radiology: Report Reviewed by me
Labs: Labs Reviewed by me
--- NOTE | 2024-05-21 14:22 | W.PN.CRS1 ---
Addendum entered and electronically signed by Otis Mattson MD 05/21/24 14:55:
I saw and examined the patient.
The Guide Dog Instructor's note was reviewed and I agree with the note.
Comment: Improving. Still with intermittent nausea controlled with zofran. Sergey clears. Passing small flatus but no BM yet. Exam obese, nt. GI managing bowel regimen. Would defer to GI for mgmt of this chronic constipation in setting of intermediate designer
opioid use. No indication for surgical intervention, will s/o. Pls call with ?s
Original Note:
Today's Communication / Plan
-
Clears
Bowel regimen
Assessment/Plan
-
64 yo male presenting with constipation/stercoral colitis.
Scope on 05/19/24: no evidence for mass although large fecolith noted and removed. Severe constipation noted, lack of prep limited study
US today without significant findings
Resolution of leukocytosis
Tolerating clears
+flatus
AFVSS
--No plan for surgical intervention
--Diet advancement and bowel regimen as per GI
--Surgery to follow peripherally, please call with questions/concerns
Subjective Data
Subjective Data
Date of Service: May 21, 2024
Patient seen and examined at bedside with Dr. Mattson. Family present. Reports some nausea. Tolerating clears thus far. Passed flatus today. Some mild pain persists.
Objective Data
-
Vital Signs
Temp Pulse Resp BP Pulse Ox
99.6 F 75 20 181/96 96
05/21/24 11:00 05/21/24 11:00 05/21/24 11:00 05/21/24 11:00 05/21/24 11:00
Intake & Output
05/20/24 05/21/24 05/22/24
06:59 06:59 06:59
Intake Total 240 / 240 2190 / 2190
Output Total 275 / 275 2700 / 2700
Balance -35 / -35 -510 / -510
Intake:
Oral fluids 240 / 240 1440 / 1440
IV fluids (Total) 600 / 600
IV piggybacks 150 / 150
Output:
Urine, Delatorre 1200 / 1200
Urine, Voided 275 / 275 1500 / 1500
Lab Results
05/21/24 05:30
05/21/24 05:30
Physical Exam
-
General: No Acute Distress
Chest: Clear
Cardiovascular: Regular Rate & Rhythm
Abdomen: Soft, Distended (mild) and Non Tender
Skin: Warm, Dry and Good Color
[2024-05-21 15:00] VITALS: BP 162/96
[2024-05-21] MEDS: CRESTOR 10 MG PO (17:27)
[2024-05-21 23:00] VITALS: BP 145/82
[2024-05-22] MEDS: ZOSYN 50 IV ×5 (00:15→23:23)
[2024-05-22] MEDS: MORPHINE SULFATE 4 MG IV ×4 (00:40→23:38)
[2024-05-22 06:00] VITALS: BMI 44.0
[2024-05-22 07:40] VITALS: BP 141/79
[2024-05-22] MEDS: FLEXERIL 10 MG PO ×3 (07:44→20:38)
[2024-05-22] MEDS: COZAAR 100 MG PO (07:44)
[2024-05-22] MEDS: MIRALAX 17 GRAMS PO ×2 (07:44→12:38)
[2024-05-22] MEDS: WELLBUTRIN SR (12 hour sustained release) 150 MG PO ×2 (07:44→20:38)
[2024-05-22] MEDS: MYLICON 80 MG PO ×4 (07:44→20:38)
[2024-05-22] MEDS: TRICOR 145 MG PO (07:44)
[2024-05-22] MEDS: NSS (PRESERVATIVE FREE) 10 ML IV (07:45)
[2024-05-22] MEDS: PROTONIX IV 40 MG IV (07:45)
--- NOTE | 2024-05-22 07:58 | W.PN.GI.CBS2 ---
Today's Communication / Plan
-
golytely
Assessment / Plan
-
Pt is a 64yo with hx colon polyps, Ecoli shiga infection, IBS, GERD, HTN, Asthma, HTN, hypercholesterolemia, depression, chronic pain on chronic narcotics with presents to ER for diffuse abdominal pain with no stools for several days. He admits to
straining with only passing small amount of stools. On admission Ct completed with IV only with concern for luminal narrowing with concern for stricture with moderate wall thickening of rectum mass vs colitis. Repeat imaging with rectal contrast
again concern for colon mass partial vs complete obstruction distal sigmoid and moderate stool in colon. He proceeded to colonoscopy with Dr. Ludwig 05/19 for eval for need for colonic stent and noted poor prep with hemorrhoids and stool in entire colon
with large fecolith in sigmoid that was disimpacted. Asked to see for ongoing management of constipation and eval for eventual colonoscopy.
-fecal impaction with large fecolith on flex 05/19
-RUQ pain
-leukocytosis
-chronic joint pain with chronic narcotic use
other med problems:
-colon polyps
-Ecoli shiga infection in past
-IBS
-GERD
-HTN
-asthma
-hypercholesterolemia
-depression
Plan:
Golytely today
keep on clears
will do colonoscopy when can clear him out
may need enema
Subjective
Subjective
Date of Service: May 22, 2024
Pt w/o pain, no bm with miralax. requesting colonoscopy
Objective
Data Reviewed
Laboratory Data:
Laboratory Results
05/21/24 05:30
Laboratory Results
Magnesium 2.0 mg/dl (1.6-2.3) 05/20/24 06:36
Total Bilirubin 1.2 mg/dl (0.2-1.3) 05/20/24 06:36
AST 31 U/L (17-59) 05/20/24 06:36
ALT 17 U/L (0-50) 05/20/24 06:36
Alkaline Phosphatase 70 U/L (38-126) 05/20/24 06:36
Lipase 24 U/L (23-300) 05/20/24 06:36
Vital Signs and I&O:
Vital Signs
Temp Pulse Resp BP Pulse Ox
98.7 F 70 20 130/73 95
05/22/24 07:40 05/22/24 07:44 05/22/24 07:40 05/22/24 07:44 05/22/24 07:40
I&O
05/21/24 05/22/24 05/23/24
06:59 06:59 06:59
Intake Total 2190 / 2190 2160 / 2160
Output Total 2700 / 2700 1435 / 1435
Balance -510 / -510 725 / 725
Physical Exam
Physical Exam
GI: Soft, Non Distended and Non Tender
[2024-05-22 08:06] LABS: Blood Urea Nitrogen 11 mg/dl (9-20); Calcium 8.6 mg/dl (8.4-10.2); Carbon Dioxide 29 mmol/L (22-30); Chloride 102 mmol/L (98-107); Estimated Creatinine Clearance 84 ml/min; Glucose 97 mg/dl (70-99); Potassium 3.7 mmol/L (3.5-5.1); Sodium 137 mmol/L (135-145); eGFR > 60.00
--- NOTE | 2024-05-22 10:55 | W.PN.HOSP.TC ---
Today's Communication/Plan
-
bowel prep
clears
DVT PPx
Assessment / Plan
Assessment / Plan
Mr. Minh De La Fuente is a 64 yo man with hx asthma, GERD, chronic back pain presents to the ER with abdominal pain.
CT A/P 05/19/24
IMPRESSION: Moderate circumferential wall thickening of the rectum. This may be due to a mural mass or less focal colitis.
Luminal narrowing of the rectosigmoid junction. This may be due to peristalsis. A stricture cannot be excluded. This would better be evaluated by a repeat exam with oral or rectal contrast, barium enema or colonoscopy.
Simple bilateral renal cysts.
Bilateral too small to characterize hypodense renal lesions likely benign cysts.
Small hiatal hernia.
Moderate fecal material mostly in the left colon.
Mild diverticulosis.
Colonoscopy 05/19/24
Impression: - Preparation of the colon was unsatisfactory.
- Hemorrhoids found on perianal exam.
- Stool in the entire examined colon.
- A large fecolith impacted in the sigmoid colon,
disrupted and disimpacted.
- No specimens collected.
Recommendation: - Return patient to [facility] for ongoing care.
- Clear liquid diet today.
- Aggressive osmotic laxative regimen; Miralax 1
capful (17 grams) in 8 ounces of water PO QID.
- Repeat colonoscopy for re-evaluation, timing to be
determined.
RUQ US
IMPRESSION:
1. No convincing sonographic evidence for cholelithiasis or acute cholecystitis.
2. Borderline splenomegaly. Scattered echogenic splenic lesions, likely hemangiomas.
3. Benign-appearing bilateral renal cysts.
Large Bowel Obstruction 2/2 large Fecolith
-concern was for mass; s/p colonoscopy with finding of large fecolith now disimpacted
-aggressive bowel regimen per GI, still no BM
-golytely ordered with plans for scope this admission
-continue clears
-start simethicone
-appreciate GI
GERD
-IV Protonix
Essential HTN
-resume Losartan
-hold HCTZ
Hyperlipidemia
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
Chronic Back Pain
-he is on Cyclobenzaprine, Oxycodone PO q 4H PRN at home
-IV Morphine - resume home oxy when diet advanced
Depression
-BREAD WRAPPER Wellbutrin
DVT PPx start lovenox subQ
FULL CODE
Anticipated Discharge: > 48 hours
Subjective/Interval History
-
Date of Service: May 22, 2024
no BM yet
relieved to be getting scoped in the hospital
Objective Data
-
Labs:
Laboratory Results
05/22/24
06:43
Sodium 137
Potassium 3.7
Chloride 102
Carbon Dioxide 29
BUN 11
Creatinine 1.3
Glucose 97
Calcium 8.6
Vital Signs:
Vital Signs
Temp Pulse Resp BP Pulse Ox
98.7 F 70 20 130/73 95
05/22/24 07:40 05/22/24 07:44 05/22/24 07:40 05/22/24 07:44 05/22/24 07:40
I&O
05/21/24 05/22/24 05/23/24
06:59 06:59 06:59
Intake Total 2190 / 2190 2160 / 2160
Output Total 2700 / 2700 1435 / 1435
Balance -510 / -510 725 / 725
Review of Systems
-
History Source: Patient
All other systems: Reviewed and negative
Physical Exam
-
General: No Apparent Distress
HEENT: PERRLA
Respiratory: Clear to Auscultation; Negative Wheezes
Cardiac: Regular Rhythm and S1/S2
GI: Soft and Nontender
Genito-urinary: No Costovertebral Tender
Musculoskeletal: No Edema
Skin: Warm and Dry; Negative Rash
Neuro: AO x 3
Psych: Calm
Data Reviewed
-
Diagnostic Radiology: Report Reviewed by me
Labs: Labs Reviewed by me
[2024-05-22] MEDS: LOVENOX 40 MG SC (12:38)
[2024-05-22 15:19] VITALS: BP 165/97
[2024-05-22] MEDS: NULYTELY SOLUTION 4 LITERS PO (15:47)
[2024-05-22] MEDS: CRESTOR 10 MG PO (17:23)
[2024-05-22] MEDS: ZOFRAN 4 MG IV (23:22)
[2024-05-22 23:38] VITALS: BP 162/91
[2024-05-23] VITALS (9 sets, daily range): BP systolic 14–184; BP diastolic 63–112; BMI 43.3
[2024-05-23] MEDS: MORPHINE SULFATE 4 MG IV ×3 (04:12→21:06)
[2024-05-23] MEDS: ZOSYN 50 IV ×4 (05:21→23:41)
--- NOTE | 2024-05-23 08:20 | W.PN.UPDATE ---
Update Note
Progress Note Update
pt completed prep will add for colonoscopy today.
[2024-05-23 09:21] LABS: Blood Urea Nitrogen 10 mg/dl (9-20); Calcium 8.7 mg/dl (8.4-10.2); Carbon Dioxide 29 mmol/L (22-30); Chloride 103 mmol/L (98-107); Estimated Creatinine Clearance 84 ml/min; Glucose 90 mg/dl (70-99); Potassium 4.1 mmol/L (3.5-5.1); Sodium 138 mmol/L (135-145); eGFR > 60.00
[2024-05-23] MEDS: FLEXERIL 10 MG PO ×3 (09:51→20:57)
[2024-05-23] MEDS: TRICOR 145 MG PO (09:51)
[2024-05-23] MEDS: WELLBUTRIN SR (12 hour sustained release) 150 MG PO ×2 (09:52→20:57)
[2024-05-23] MEDS: NSS (PRESERVATIVE FREE) 10 ML IV (09:52)
[2024-05-23] MEDS: COZAAR 100 MG PO (09:52)
[2024-05-23] MEDS: MYLICON 80 MG PO ×4 (09:52→20:57)
[2024-05-23] MEDS: PROTONIX IV 40 MG IV (09:52)
--- NOTE | 2024-05-23 12:33 | W.PN.HOSP.TC ---
Today's Communication/Plan
-
ongoing bowel prep for Colonoscopy now planned 05/24
continue clears
Assessment / Plan
Assessment / Plan
Mr. Minh De La Fuente is a 64 yo man with hx asthma, GERD, chronic back pain presents to the ER with abdominal pain.
CT A/P 05/19/24
IMPRESSION: Moderate circumferential wall thickening of the rectum. This may be due to a mural mass or less focal colitis.
Luminal narrowing of the rectosigmoid junction. This may be due to peristalsis. A stricture cannot be excluded. This would better be evaluated by a repeat exam with oral or rectal contrast, barium enema or colonoscopy.
Simple bilateral renal cysts.
Bilateral too small to characterize hypodense renal lesions likely benign cysts.
Small hiatal hernia.
Moderate fecal material mostly in the left colon.
Mild diverticulosis.
Colonoscopy 05/19/24
Impression: - Preparation of the colon was unsatisfactory.
- Hemorrhoids found on perianal exam.
- Stool in the entire examined colon.
- A large fecolith impacted in the sigmoid colon,
disrupted and disimpacted.
- No specimens collected.
Recommendation: - Return patient to [facility] for ongoing care.
- Clear liquid diet today.
- Aggressive osmotic laxative regimen; Miralax 1
capful (17 grams) in 8 ounces of water PO QID.
- Repeat colonoscopy for re-evaluation, timing to be
determined.
RUQ US
IMPRESSION:
1. No convincing sonographic evidence for cholelithiasis or acute cholecystitis.
2. Borderline splenomegaly. Scattered echogenic splenic lesions, likely hemangiomas.
3. Benign-appearing bilateral renal cysts.
Assessment:
Large Bowel Obstruction 2/2 large Fecolith
- concern was for mass; s/p colonoscopy 05/19 with finding of large fecolith now disimpacted
- aggressive bowel regimen per GI, still no BM
- continue Zosyn, day 4/5
- continue Golytely, day 2. Colonoscopy 05/23 with poor prep
- continue clears
- continue Gas-X
- re-attempt Colonoscopy tentatively tomorrow
GERD
- IV Protonix
Essential HTN
- continue Losartan
- hold HCTZ
Hyperlipidemia
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
Chronic Back Pain
- he is on Cyclobenzaprine, Oxycodone PO q 4H PRN at home
- IV Morphine - resume home oxy when diet advanced
Depression
- ONLINE AFFILIATE MARKETING MANAGER Wellbutrin
DVT ppx: Lovenox
Code: Full
Anticipated Discharge: > 48 hours
Subjective/Interval History
-
Date of Service: May 23, 2024
s/p prep overnight but not well prepped, for repeat today
denies any new complaints
Objective Data
-
Labs:
Laboratory Results
05/23/24
08:13
Sodium 138
Potassium 4.1
Chloride 103
Carbon Dioxide 29
BUN 10
Creatinine 1.3
Glucose 90
Calcium 8.7
Vital Signs:
Vital Signs
Temp Pulse Resp BP Pulse Ox
97.8 F 64 18 131/69 95
05/23/24 07:55 05/23/24 07:55 05/23/24 07:55 05/23/24 07:55 05/23/24 07:55
I&O
05/22/24 05/23/24 05/24/24
06:59 06:59 06:59
Intake Total 2160 / 2160 1600 / 1600
Output Total 1435 / 1435 300 / 300
Balance 725 / 725 1300 / 1300
Physical Exam
-
General: No Apparent Distress
HEENT: Normocephalic and Atraumatic
Respiratory: Negative Wheezes
Cardiac: Regular Rhythm and S1/S2
GI: Soft
Genito-urinary: No Costovertebral Tender
Neuro: AO x 3
Hematologic / Lymphatic: No Lymphadenopathy
Psych: Calm
Data Reviewed
-
Total Time Spent with Patient (in minutes): 43
Labs: Labs Reviewed by me
--- NOTE | 2024-05-23 12:40 | CM ---
corporate services manager reviewed patient's chart and plan is for patient to return to home alone when stable.
Plan; Home alone when stable.
[2024-05-23] MEDS: ZOFRAN 4 MG IV (16:36)
[2024-05-23] MEDS: CRESTOR 10 MG PO (17:03)
[2024-05-23] MEDS: LOVENOX 40 MG SC (17:03)
[2024-05-23] MEDS: NULYTELY SOLUTION 4 LITERS PO (17:03)
[2024-05-24] VITALS (7 sets, daily range): BP systolic 14–164; BP diastolic 70–98; BMI 43.4
[2024-05-24] MEDS: MORPHINE SULFATE 4 MG IV ×5 (01:04→22:16)
[2024-05-24] MEDS: ZOSYN 50 IV ×4 (05:55→23:21)
[2024-05-24 07:21] LABS: Blood Urea Nitrogen 9 mg/dl (9-20); Calcium 8.8 mg/dl (8.4-10.2); Carbon Dioxide 25 mmol/L (22-30); Chloride 105 mmol/L (98-107); Estimated Creatinine Clearance 91 ml/min; Glucose 92 mg/dl (70-99); Potassium 3.8 mmol/L (3.5-5.1); Sodium 139 mmol/L (135-145); eGFR > 60.00
--- NOTE | 2024-05-24 09:21 | W.PN.HOSP.TC ---
Today's Communication/Plan
-
for repeat colonoscopy
Assessment / Plan
Assessment / Plan
Mr. Minh De La Fuente is a 64 yo man with hx asthma, GERD, chronic back pain presents to the ER with abdominal pain.
CT A/P 05/19/24
IMPRESSION: Moderate circumferential wall thickening of the rectum. This may be due to a mural mass or less focal colitis.
Luminal narrowing of the rectosigmoid junction. This may be due to peristalsis. A stricture cannot be excluded. This would better be evaluated by a repeat exam with oral or rectal contrast, barium enema or colonoscopy.
Simple bilateral renal cysts.
Bilateral too small to characterize hypodense renal lesions likely benign cysts.
Small hiatal hernia.
Moderate fecal material mostly in the left colon.
Mild diverticulosis.
Colonoscopy 05/19/24
Impression: - Preparation of the colon was unsatisfactory.
- Hemorrhoids found on perianal exam.
- Stool in the entire examined colon.
- A large fecolith impacted in the sigmoid colon,
disrupted and disimpacted.
- No specimens collected.
Recommendation: - Return patient to [facility] for ongoing care.
- Clear liquid diet today.
- Aggressive osmotic laxative regimen; Miralax 1
capful (17 grams) in 8 ounces of water PO QID.
- Repeat colonoscopy for re-evaluation, timing to be
determined.
RUQ US
IMPRESSION:
1. No convincing sonographic evidence for cholelithiasis or acute cholecystitis.
2. Borderline splenomegaly. Scattered echogenic splenic lesions, likely hemangiomas.
3. Benign-appearing bilateral renal cysts.
Assessment:
Large Bowel Obstruction 2/2 large Fecolith
- concern was for mass; s/p colonoscopy 05/19 with finding of large fecolith now disimpacted
- aggressive bowel regimen per GI, no successful BM
- therefore went bowel prep 05/22 but inadequate so bowel prep repeated 05/23
- for repeat colonoscopy today
- continue Zosyn day 03/13
GERD
- IV Protonix
Essential HTN
- continue Losartan
- hold HCTZ
Hyperlipidemia
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
Chronic Back Pain
- he is on Cyclobenzaprine, Oxycodone PO q 4H PRN at home
- IV Morphine - resume home oxy when diet advanced
Depression
- DYE RANGE OPERATOR Wellbutrin
DVT ppx: Lovenox
Code: Full
Anticipated Discharge: 24 - 48 hours
Subjective/Interval History
-
Date of Service: May 24, 2024
s/p repeat prep with clear BMs
for repeat colonoscopy today
Objective Data
-
Labs:
Laboratory Results
05/24/24
06:43
Sodium 139
Potassium 3.8
Chloride 105
Carbon Dioxide 25
BUN 9
Creatinine 1.2
Glucose 92
Calcium 8.8
Vital Signs:
Vital Signs
Temp Pulse Resp BP Pulse Ox
98.0 F 67 18 145/73 95
05/24/24 07:55 05/24/24 07:55 05/24/24 07:55 05/24/24 07:55 05/24/24 07:55
I&O
05/23/24 05/24/24 05/25/24
06:59 06:59 06:59
Intake Total 1600 / 1600
Output Total 300 / 300
Balance 1300 / 1300
Physical Exam
-
General: No Apparent Distress
HEENT: Normocephalic and Atraumatic
Respiratory: Negative Wheezes
Cardiac: Regular Rhythm and S1/S2
GI: Soft
Genito-urinary: No Costovertebral Tender
Musculoskeletal: No Edema
Neuro: AO x 3
Psych: Calm
Data Reviewed
-
Total Time Spent with Patient (in minutes): 41
Labs: Labs Reviewed by me
[2024-05-24] MEDS: WELLBUTRIN SR (12 hour sustained release) 150 MG PO ×2 (10:35→20:21)
[2024-05-24] MEDS: TRICOR 145 MG PO (10:35)
[2024-05-24] MEDS: MYLICON 80 MG PO ×4 (10:35→20:21)
[2024-05-24] MEDS: PROTONIX IV 40 MG IV (10:35)
[2024-05-24] MEDS: NSS (PRESERVATIVE FREE) 10 ML IV (10:36)
[2024-05-24] MEDS: FLEXERIL 10 MG PO ×3 (10:36→20:21)
[2024-05-24] MEDS: COZAAR 100 MG PO (10:37)
--- NOTE | 2024-05-24 10:37 | PTCARENOTE ---
Patient in GI lab for colonoscopy. Morning medications administered when he returned. See MAR
--- NOTE | 2024-05-24 12:33 | CM ---
Chart reviewed and plan is for possible discharge tomorrow, residential case manager reviewed discharge planning with patient and offered patient visiting nurses however patient declined the need for visiting nurses.
Plan; Home when stable, no needs.
[2024-05-24] MEDS: CRESTOR 10 MG PO (17:33)
[2024-05-24] MEDS: LOVENOX 40 MG SC (17:33)
[2024-05-25] MEDS: MORPHINE SULFATE 4 MG IV (04:06)
--- NOTE | 2024-05-25 04:11 | DOWNTIME ---
There was a [facility] Client Crane Mechanic Downtime on 05/25/2024 from 0100 to 05/25/2024 at 0255. Downtime documentation of patient's care, including medication administrations, has been reconciled in the electronic record per guidelines. Refer to the
patient's paper chart under the miscellaneous tab to see printed paper medication records and downtime forms.
[2024-05-25] MEDS: ZOSYN 50 IV (06:14)
[2024-05-25 07:21] VITALS: BP 151/80
[2024-05-25] MEDS: COZAAR 100 MG PO (08:05)
[2024-05-25] MEDS: MYLICON 80 MG PO (08:05)
[2024-05-25] MEDS: WELLBUTRIN SR (12 hour sustained release) 150 MG PO (08:05)
[2024-05-25] MEDS: PROTONIX IV 40 MG IV (08:06)
[2024-05-25] MEDS: NSS (PRESERVATIVE FREE) 10 ML IV (08:06)
[2024-05-25] MEDS: TRICOR 145 MG PO (08:06)
[2024-05-25] MEDS: FLEXERIL 10 MG PO (08:07)
--- NOTE | 2024-05-25 10:01 | W.PN.HOSP.TC ---
Today's Communication/Plan
-
dc to home
GI f/u in 4 weeks, repeat C-scope in 6 months
Assessment / Plan
Assessment / Plan
Mr. Minh De La Fuente is a 64 yo man with hx asthma, GERD, chronic back pain presents to the ER with abdominal pain.
CT A/P 05/19/24
IMPRESSION: Moderate circumferential wall thickening of the rectum. This may be due to a mural mass or less focal colitis.
Luminal narrowing of the rectosigmoid junction. This may be due to peristalsis. A stricture cannot be excluded. This would better be evaluated by a repeat exam with oral or rectal contrast, barium enema or colonoscopy.
Simple bilateral renal cysts.
Bilateral too small to characterize hypodense renal lesions likely benign cysts.
Small hiatal hernia.
Moderate fecal material mostly in the left colon.
Mild diverticulosis.
Colonoscopy 05/19/24
Impression: - Preparation of the colon was unsatisfactory.
- Hemorrhoids found on perianal exam.
- Stool in the entire examined colon.
- A large fecolith impacted in the sigmoid colon,
disrupted and disimpacted.
- No specimens collected.
Recommendation: - Return patient to [facility] for ongoing care.
- Clear liquid diet today.
- Aggressive osmotic laxative regimen; Miralax 1
capful (17 grams) in 8 ounces of water PO QID.
- Repeat colonoscopy for re-evaluation, timing to be
determined.
RUQ US
IMPRESSION:
1. No convincing sonographic evidence for cholelithiasis or acute cholecystitis.
2. Borderline splenomegaly. Scattered echogenic splenic lesions, likely hemangiomas.
3. Benign-appearing bilateral renal cysts.
Assessment:
Large Bowel Obstruction 2/2 large Fecolith
- concern was for mass; s/p colonoscopy 05/19 with finding of large fecolith now disimpacted
- aggressive bowel regimen per GI, no successful BM
- therefore went bowel prep 05/22 but inadequate so bowel prep repeated 05/23
- repeat colonoscopy 05/24 showed Non-bleeding external and internal hemorrhoids. Diverticulosis in the sigmoid colon, in the descending colon and in the ascending colon. 2 mucosal ulcerations with erythematous edema at 50 cm proximal to the anus.
- completed 5 day Zosyn course
- DC on Miralax daily
GERD
- resume PPI at discharge
Essential HTN
- continue Losartan/HCTZ
Hyperlipidemia
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
Chronic Back Pain
- he is on Cyclobenzaprine, Oxycodone PO q 4H PRN at home
Depression
- HVAC DESIGN ENGINEER Wellbutrin
DVT ppx: Lovenox
Code: Full
More than 30 minutes spent in discharge including
Final examination of the patient
Summarizing hospital stay
Instructions for continuing care to all relevant caregivers
Preparation of discharge records, prescriptions, and referral forms
Total time spent (in minutes): 44
Anticipated Discharge: Today
Subjective/Interval History
-
Date of Service: May 25, 2024
denies any new complaints presently
Objective Data
-
Vital Signs:
Vital Signs
Temp Pulse Resp BP Pulse Ox
97.6 F 67 16 151/80 99
05/25/24 07:21 05/25/24 07:21 05/25/24 07:21 05/25/24 07:21 05/25/24 07:21
I&O
05/24/24 05/25/24 05/26/24
06:59 06:59 06:59
Intake Total 820 / 820
Output Total 400 / 400
Balance 420 / 420
Physical Exam
-
General: No Apparent Distress
HEENT: Normocephalic and Atraumatic
Respiratory: Negative Wheezes
Cardiac: Regular Rhythm
GI: Soft
Genito-urinary: No Costovertebral Tender
Musculoskeletal: No Edema
Neuro: AO x 3
Psych: Calm
Data Reviewed
-
Total Time Spent with Patient (in minutes): 44
Labs: Labs Reviewed by me
--- NOTE | 2024-05-25 10:05 | W.DS.TRANS ---
DC Summary - Data Consultant
-
Discharge Instructions:
Discharge Diagnosis/Procedures fecal impaction s/p colonoscopy procedures (1st
to disimpact)
Diet Regular
Activity As tolerated
Bathing Restrictions None
Instructions:
Stand-Alone Forms:
Changes to Home Medications: No
Discharge Medications:
DC Medications w/original date entered in [facility]
bupropion HCl 150 mg tablet,12 hr sustained-release 150 mg PO BID Mental Health/Anxiety 02/21/23
cyclobenzaprine 10 mg tablet 10 mg PO TID 02/21/23
fenofibrate 160 mg tablet 160 mg PO DAILY 02/21/23
fluticasone propionate 50 mcg/actuation nasal spray,suspension 1 spray intranasal DAILY Lung/Breathing Issues 02/21/23
ketoconazole 2 % topical cream 1 applic topical DAILY to face & belly button 02/21/23
losartan 100 mg tablet 100 mg PO DAILY Blood Pressure 02/21/23
omeprazole 20 mg capsule,delayed release 20 mg PO DAILY Gastrointestinal Issue 02/21/23
rosuvastatin 10 mg tablet 10 mg PO DAILY High Cholesterol 02/21/23
testosterone cypionate 200 mg/mL intramuscular kit 200 mg IM Q3W 02/21/23
cholecalciferol (vitamin D3) 25 mcg (1,000 unit) tablet 25 mcg PO DAILY Supplement 05/19/24
hydrochlorothiazide 12.5 mg capsule 12.5 mg PO DAILY Fluid Retention/Swelling 05/19/24
multivit,Ca,min-iron 8 mg-folic acid 200 mcg-lycopene 600 mcg tablet (Centrum Men) 1 tab PO DAILY Supplement 05/19/24
oxycodone 10 mg tablet 10 mg PO Q4HPRN PRN moderate pain 05/19/24
docusate sodium 100 mg capsule (Colace) 100 mg PO DAILY Constipation 05/20/24
polyethylene glycol 3350 17 gram oral powder packet (HealthyLax) 17 g PO DAILY #30 ea 05/25/24
Home Medication Changes
Pending Results: No
Total time spent discharging patient (in min): 44
--- NOTE | 2024-05-25 10:47 | CM ---
care center manager reviewed patient's chart and met with patient and patient has been cleared for discharge today.
Plan; Home no needs.
== END 2024-05-25 11:52 | disposition home or self-care (01) | DRG 389 ==
LOC: 4 WEST ACU 18:30
PROVIDERS: Internal Medicine Gastroenterology; ADMITTING PHYSICIAN Student in an Organized Health Care Education/Training Program; ATTENDING PHYSICIAN Internal Medicine; CONSULT PHYSICIAN Internal Medicine; CONSULT PHYSICIAN Surgery; EMERGENCY PHYSICIAN Emergency Medicine; FAMILY PHYSICIAN Nurse Practitioner Family
PROC: 0DCN8ZZ Extirpation of Matter from Sigmoid Colon, Via Natural or Artificial Opening Endoscopic (ICD-10-PCS; 2024-05-19)
PROC: 0DJD8ZZ Inspection of Lower Intestinal Tract, Via Natural or Artificial Opening Endoscopic (ICD-10-PCS; 2024-05-23)
DX: K56.699 Other intestinal obstruction unspecified as to partial versus complete obstruction (principal); F11.20 Opioid dependence, uncomplicated; K63.3 Ulcer of intestine; Z68.41 Body mass index [BMI] 40.0-44.9, adult; K56.41 Fecal impaction; K58.1 Irritable bowel syndrome with constipation; K21.9 Gastro-esophageal reflux disease without esophagitis; J45.909 Unspecified asthma, uncomplicated; G89.29 Other chronic pain; M54.50 Low back pain, unspecified; E78.00 Pure hypercholesterolemia, unspecified; F32.A Depression, unspecified; D72.829 Elevated white blood cell count, unspecified; I10 Essential (primary) hypertension; E66.9 Obesity, unspecified; T40.2X5A Adverse effect of other opioids, initial encounter; K57.30 Diverticulosis of large intestine without perforation or abscess without bleeding; K64.8 Other hemorrhoids; K64.4 Residual hemorrhoidal skin tags; Z86.010 Personal history of colon polyps; Z79.899 Other long term (current) drug therapy
CPT/HCPCS: 74018; 74022; 74176; 74177; 76700; 80048; 80053; 82248; 83690; 83735; 85025; 96361; 96374; 96375; 99285; Q9967

== ENCOUNTER 2025-03-07 06:20 | Day surgery (SDC) | payer OTHER, SELFPAY | END 2025-03-07 14:21 | disposition home or self-care (01) | LOC: GI 06:20 | PROVIDERS: ATTENDING PHYSICIAN Internal Medicine Gastroenterology | DX: Z12.11 Encounter for screening for malignant neoplasm of colon (principal); K64.8 Other hemorrhoids; K57.30 Diverticulosis of large intestine without perforation or abscess without bleeding; K55.20 Angiodysplasia of colon without hemorrhage; R12 Heartburn; K31.7 Polyp of stomach and duodenum; K44.9 Diaphragmatic hernia without obstruction or gangrene; K20.90 Esophagitis, unspecified without bleeding; K31.89 Other diseases of stomach and duodenum; K29.50 Unspecified chronic gastritis without bleeding; D12.3 Benign neoplasm of transverse colon; Z86.0100 Personal history of colon polyps, unspecified; Z13.810 Encounter for screening for upper gastrointestinal disorder; Z80.0 Family history of malignant neoplasm of digestive organs | CPT/HCPCS: 45380; 43239; 88305; 88342 ==